=== PATIENT | female | born 1980 | race African-American/Black ===

== ENCOUNTER 2020-12-14 06:06 | Observation (INO) | payer BC ==
[2020-12-13 11:09] LABS: BASOPHILS # (AUTO) 0.1 (0.0-0.1); BASOPHILS % 0.7 % (0.0-1.0); EOSINOPHILS # (AUTO) 0.1 (0.0-0.4); HEMATOCRIT 34.1 % (34.2-44.1); HEMOGLOBIN 10.2 g/dL (12.0-16.0); LYMPHOCYTES % 24.3 % (18.0-39.1); MEAN CORPUSCULAR HEMOGLOBIN 27.6 pg (28-32); MEAN CORPUSCULAR HGB CONC 29.9 g/dL (31-35); MEAN CORPUSCULAR VOLUME 92.4 fL (81-99); MONOCYTES # (AUTO) 0.8 (0.2-0.8); MONOCYTES % 10.1 % (4.4-11.3); NEUTROPHILS # (AUTO) 5.3 (2.1-6.9); NEUTROPHILS % 63.5 % (38.7-80.0); PLATELET COUNT 568 x10e3/uL (140-360); RED BLOOD COUNT 3.69 x10e6/uL (3.6-5.1); RED CELL DISTRIBUTION WIDTH 20.3 % (11.7-14.4)
[2020-12-13 11:34] LABS: ALANINE AMINOTRANSFERASE 80 IU/L (0-55); ALBUMIN 3.4 g/dL (3.5-5.0); ALBUMIN/GLOBULIN RATIO 0.7 (0.8-2.0); ALKALINE PHOSPHATASE 100 IU/L (40-150); ANION GAP 14.5 mmol/L (8-16); BLOOD UREA NITROGEN 8 mg/dL (7-26); BUN/CREATININE RATIO 12 (6-25); CALCIUM 9.7 mg/dL (8.4-10.2); CARBON DIOXIDE 20 mmol/L (22-29); CHLORIDE 108 mmol/L (98-107); CREATININE, SERUM 0.65 mg/dL (0.57-1.11); EST GLOMERULAR FILTRATION RATE 122 ML/MIN (60-); GLUCOSE 90 mg/dL (74-118); POTASSIUM 3.5 mmol/L (3.5-5.1); SODIUM 139 mmol/L (136-145)
[~2020-12-14] VITALS: Ht 177.8 cm; Wt 71.7 kg
[2020-12-14] VITALS (9 sets, daily range): BP systolic 130–139; BP diastolic 78–83
[~2020-12-14 06:06] MED LIST: ACETAMINOPHEN/1 EAC1 PO; PROTONIX20 MG PO; PROVERA5 MG PO; ZUPLENZ8 MG
[2020-12-14] MEDS ORDERED: SODIUM CHLORIDE 0.9% 50ML 100 ML ONE (06:40)
[2020-12-14] MEDS ORDERED: PROMETHAZINE HCL (IM) 25 MG/ML VIAL IM PRN (09:30)
[2020-12-14] MEDS ORDERED: DOCUSATE SODIUM 100 MG CAP PO PRN (09:30)
[2020-12-14] MEDS ORDERED: FENTANYL CITRATE/PF 100MCG/2 ML INJ ONE (09:58)
[2020-12-14] MEDS ORDERED: MORPHINE SULFATE INJ 4 MG/ML INJ 1ML ONE (10:18)
[2020-12-14] MEDS: HYDROMORPHONE 1MG/1ML INJ IV PRN ×4 (10:29→18:29)
[2020-12-14] MEDS: LACTATED RINGER'S 1,000 ML IV SCH ×2 (12:57→16:18)
[2020-12-14] MEDS: IBUPROFEN 800 MG/200 ML IV SCH ×2 (13:18→18:00)
[2020-12-14] MEDS: ONDANSETRON HCL INJ 2MG/ML 2ML 2 MG/ML VIAL IV PRN ×2 (13:29→18:29)
[2020-12-14] MEDS: ACETAMINOPHEN 1000 MG/100 ML IV SCH ×2 (15:06→20:45)
[2020-12-14] MEDS ORDERED: OXYCODONE HCL IR 5 MG TAB PO PRN ×2 (18:00)
[2020-12-14] MEDS ORDERED: ACETAMINOPHEN 325 MG TAB PO PRN (18:00)
[2020-12-14] MEDS ORDERED: IBUPROFEN 400 MG TAB PO PRN (18:00)
[2020-12-15] MEDS: LACTATED RINGER'S 1,000 ML IV SCH (00:02)
[2020-12-15] MEDS: IBUPROFEN 800 MG/200 ML IV SCH ×2 (00:02→06:00)
[2020-12-15 00:10] VITALS: BP 121/80
[2020-12-15] MEDS: ACETAMINOPHEN 1000 MG/100 ML IV SCH (03:02)
[2020-12-15 04:46] VITALS: BP 119/76
[2020-12-15 05:10] LABS: HEMATOCRIT 25.5 % (34.2-44.1); HEMOGLOBIN 8.1 g/dL (12.0-16.0)
[2020-12-15 05:42] LABS: ANION GAP 11.4 mmol/L (8-16); CALCIUM 8.3 mg/dL (8.4-10.2); POTASSIUM 3.4 mmol/L (3.5-5.1)
[2020-12-15 06:16] LABS: CREATININE, SERUM 0.63 mg/dL (0.57-1.11)
[2020-12-15] MEDS: ONDANSETRON HCL INJ 2MG/ML 2ML 2 MG/ML VIAL IV PRN (08:00)
[2020-12-15] MEDS ORDERED: LIDOCAINE 4% PATCH TP SCH (09:00)
[2020-12-15 09:01] VITALS: BP 130/83
[2020-12-15] MEDS: ACETAMINOPHEN 325 MG TAB PO SCH ×2 (09:15→16:08)
[2020-12-15 09:19] VITALS: BP 130/83
[2020-12-15] MEDS ORDERED: IBUPROFEN 100 MG/5 ML SUSP PO SCH (12:00)
[2020-12-15 13:02] VITALS: BP 121/82
[2020-12-15] MEDS ORDERED: PERCOCET 5-3251 EACH PO (14:58)
[2020-12-15] MEDS ORDERED: MOTRIN200 MG PO (14:58)
[2020-12-15 16:41] VITALS: BP 121/92
== END 2020-12-15 17:03 | disposition home or self-care (01) ==
LOC: OR 06:06 → PACU V 10:22 → MED/SURG 11:01
PROVIDERS: ADMIT Obstetrics & Gynecology; ATTEND Obstetrics & Gynecology
DX: D25.2 Subserosal leiomyoma of uterus (principal); N93.9 Abnormal uterine and vaginal bleeding, unspecified; Z20.822 Contact with and (suspected) exposure to COVID-19; Z01.818 Encounter for other preprocedural examination; N72 Inflammatory disease of cervix uteri; N73.6 Female pelvic peritoneal adhesions (postinfective)
CPT/HCPCS: 36415 ×2; 58150; 80048; 80053; 84702; 85014; 85018; 85025; 86850; 86900; 88307; G0378 ×2; J0131 ×2; J0690; J1170; J2270; J2405 ×2; J3010; J7121 ×2; U0002; 88305